=== PATIENT | female | born 1995 ===

== ENCOUNTER 2023-07-22 21:12 | Outpatient (REF) | payer OTHER, SELFPAY ==
[2023-07-24 14:37] LABS: Chlamydia Result Negative (Negative); GC Result Negative (Negative)
[2023-07-24 15:11] LABS: HSV 1 DNA Result Positive (Negative); HSV 2 DNA Result Negative (Negative)
== END 2023-07-22 21:13 | disposition home or self-care (01) ==
LOC: LBN 21:12
PROVIDERS: Visit Provider Physician Assistant Medical
DX: N89.8 Other specified noninflammatory disorders of vagina (principal)
CPT/HCPCS: 87491; 87529; 87591; 87480; 87510; 87660